=== PATIENT | male | born 1965 | race Two or more races ===

== ENCOUNTER 2021-03-26 11:29 | Emergency (ER) | payer SELFPAY ==
[~2021-03-26] VITALS: Ht 175.3 cm; Wt 77.1 kg
--- NOTE | 2021-03-26 11:48 | NUR ---
SEEN BY DR CHAVIS, WAITING FOR FURTHER ORDERS
[2021-03-26] MEDS ORDERED: ACETAMINOPHEN ES 500 MG TABLET ONE (11:50)
[2021-03-26] MEDS ORDERED: ACETAMINOPHEN ES 500 MG TABLET PO ONE (12:00)
[2021-03-26 13:46] VITALS: BP 118/77
--- NOTE | 2021-03-26 13:46 | NUR ---
Patient discharged to home in stable condition. Written and verbal after care instructions given. Patient verbalizes understanding of instruction.
== END 2021-03-26 13:46 | disposition home or self-care (01) ==
LOC: ER 11:34
DX: B34.9 Viral infection, unspecified (principal); Z20.822 Contact with and (suspected) exposure to COVID-19
CPT/HCPCS: 87426; 99283; C9803